=== PATIENT | female | born 1985 | race Caucasian/White ===

== ENCOUNTER 2016-07-05 17:00 | Emergency (ER) | payer MEDICAID ==
[2016-07-05] MEDS ORDERED: SODIUM CHLORIDE 0.9% 1,000 ML IV ONE (17:32)
[2016-07-05] MEDS ORDERED: KETOROLAC 60 MG/2 ML VIAL IVP STA (17:33)
[2016-07-05] MEDS ORDERED: PROCHLORPERAZINE 10 MG/2 ML VIAL IVP STA (17:33)
[2016-07-05] MEDS ORDERED: diphenhydrAMINE INJ 50 MG/ML VIAL IVP STA (17:33)
[2016-07-05] MEDS ORDERED: diphenhydrAMINE INJ 50 MG/ML VIAL ONE (17:34)
[2016-07-05] MEDS ORDERED: KETOROLAC 30 MG/ML VIAL ONE (17:35)
[2016-07-05] MEDS ORDERED: PROCHLORPERAZINE 10 MG/2 ML VIAL ONE (17:35)
== END 2016-07-05 18:49 | disposition home or self-care (01) ==
DX: G43.909 Migraine, unspecified, not intractable, without status migrainosus (principal); F17.200 Nicotine dependence, unspecified, uncomplicated

== ENCOUNTER 2016-07-11 16:36 | Emergency (ER) | payer MEDICAID ==
[2016-07-11] MEDS ORDERED: HYDROcod/ACETAM 5/325 MG TABLET PO STA (16:55)
[2016-07-11] MEDS ORDERED: CLINDAMYCIN 150 MG CAPSULE PO STA (16:55)
[2016-07-11] MEDS ORDERED: CLINDAMYCIN 150 MG CAPSULE PO ONE (17:00)
[2016-07-11] MEDS ORDERED: HYDROcod/ACETAM 5/325 MG TABLET ONE (17:00)
== END 2016-07-11 17:05 | disposition home or self-care (01) ==
DX: K02.9 Dental caries, unspecified (principal); F17.200 Nicotine dependence, unspecified, uncomplicated
CPT/HCPCS: 99283; A9270

== ENCOUNTER 2016-07-29 18:23 | Emergency (ER) | payer MEDICAID | END 2016-07-29 20:40 | disposition home or self-care (01) | DX: J06.9 Acute upper respiratory infection, unspecified (principal); B97.89 Other viral agents as the cause of diseases classified elsewhere; F17.200 Nicotine dependence, unspecified, uncomplicated; R03.0 Elevated blood-pressure reading, without diagnosis of hypertension ==

== ENCOUNTER 2016-10-24 15:43 | Outpatient (CLI) | payer MEDICAID ==
--- NOTE | 2016-10-25 16:20 | Mammography Report ---
DIGITAL SCREENING MAMMOGRAM: 10/24/2016 CLINICAL INDICATION: A 31-year-old with family history of breast cancer (mother first diagnosed at a ge 32), for baseline. TECHNIQUE: Routine CC and MLO projections were obtained of the breasts. FINDINGS: The breasts demonstrate heterogeneously dense fibroglandular parenchyma bilaterally. Ther e are two possible obscured nodules in the right breast, one in the upper outer posterior breast and the other in the right lower inner anterior breast. Further evaluation with spot compression views a nd possible right breast ultrasound is recommended. No mammographically suspicious findings are appr eciated in the left breast. IMPRESSION: INCOMPLETE EXAMINATION. RECOMMENDATION: Additional evaluation of the right breast as above. BI-RADS category 0, incomplete. STANDARD QUALIFYING STATEMENTS 1. This examination was reviewed with the aid of Computer-Aided Detection (CAD). 2. A negative or benign imaging report should not delay biopsy if clinically suspicious findings are present. Consider surgical consultation if warranted. More than 5% of cancers are not identified by i maging. 3. Dense breasts may obscure an underlying neoplasm. JOB #: [id number] EXT JOB #:[id number]
== END 2016-10-24 15:44 | disposition home or self-care (01) ==
LOC: DI 15:43
PROVIDERS: ATTEND Physician Assistant Medical
DX: Z12.31 Encounter for screening mammogram for malignant neoplasm of breast (principal); R92.8 Other abnormal and inconclusive findings on diagnostic imaging of breast; Z80.3 Family history of malignant neoplasm of breast
CPT/HCPCS: 77067

== ENCOUNTER 2016-11-14 12:16 | Outpatient (CLI) | payer MEDICAID ==
--- NOTE | 2016-11-14 13:31 | Ultrasound Report ---
RIGHT BREAST ULTRASOUND: 11/14/2016 CLINICAL INDICATION: Nodule on baseline. TECHNIQUE: Real-time scanning was performed with sales representative printing paper static images obtained. FINDINGS: Ultrasound of the right inner breast was performed. At the 3:30 position, 4 cm from the n ipple, there is a cluster of cysts, measuring an aggregate of 1.3 x 1.2 x 0.5 cm. A similar cluster of cysts, measuring 1.2 x 0.7 x 0.6 cm is noted at the 3 o'clock position. No sonographically suspic ious findings are identified. IMPRESSION: CLUSTER OF CYSTS, ACCOUNTING FOR THE MAMMOGRAPHIC ABNORMALITY. RECOMMENDATION: Routine annual screening unless otherwise clinically indicated. BIRADS CATEGORY 2 - BENIGN FINDINGS. JOB #: [id number] EXT JOB #:[id number]
--- NOTE | 2016-11-14 15:24 | Mammography Report ---
DIGITAL DIAGNOSTIC RIGHT MAMMOGRAM: 11/14/2016 CLINICAL INDICATION: Possible nodules on baseline. TECHNIQUE: Right true lateral and spot compression views. COMPARISON: 10/24/2016. FINDINGS: The right breast again demonstrates heterogeneously dense fibroglandular parenchyma. The n odule in the right inner anterior breast persists on additional compression, measuring approximately 8 mm in diameter. The density in the right outer posterior breast dissipates on additional compressio n. Please also refer to right breast ultrasound of the same day. IMPRESSION: BENIGN FINDINGS, WITH A CLUSTER OF CYSTS ACCOUNTING FOR THE PERSISTENT MAMMOGRAPHIC ABNO RMALITY IN THE RIGHT INNER BREAST. RECOMMENDATION: ROUTINE ANNUAL SCREENING UNLESS OTHERWISE CLINICALLY INDICATED. BIRADS CATEGORY 2-BENIGN FINDINGS. STANDARD QUALIFYING STATEMENTS 1. This examination was reviewed with the aid of Computer-Aided Detection (CAD). 2. A negative or benign imaging report should not delay biopsy if clinically suspicious findings are present. Consider surgical consultation if warranted. More than 5% of cancers are not identified by i maging. 3. Dense breasts may obscure an underlying neoplasm. JOB #: [id number] EXT JOB #:[id number]
== END 2016-11-14 12:17 | disposition home or self-care (01) ==
LOC: DI 12:16
PROVIDERS: ATTEND Physician Assistant Medical
DX: N60.01 Solitary cyst of right breast (principal)
CPT/HCPCS: 76642

== ENCOUNTER 2017-09-15 07:08 | Outpatient (CLI) | payer OTHER ==
[2017-09-15 07:23] LABS: BASOPHILS # (AUTO) 0.1 10^3/uL (0.0-0.1); BASOPHILS % (AUTO) 0.8 %; EOSINOPHILS # (AUTO) 0.2 10^3/uL (0.0-0.7); EOSINOPHILS % (AUTO) 1.6 %; HGB - HEMOGLOBIN 13.7 g/dL (12.0-16.0); LYMPHOCYTES # (AUTO) 2.5 10^3/uL (1.5-3.5); MEAN CORPUSCULAR HEMOGLOBIN 27.7 pg (27.0-31.0); MEAN CORPUSCULAR HGB CONC 33.4 g/dL (32.0-36.0); MEAN PLATELET VOLUME 7.3 fL (7.9-10.8); MONOCYTES # (AUTO) 0.5 10^3/uL (0.0-1.0); MONOCYTES % (AUTO) 5.3 %; NEUTROPHILS # (AUTO) 6.7 10^3/uL (1.5-6.6); NEUTROPHILS % (AUTO) 67.3 %; PLT - PLATELET COUNT 378 10^3/uL (130-450); RED BLOOD COUNT 4.95 10^6/uL (4.20-5.40); RED CELL DISTRIBUTION WIDTH 13.6 % (12.0-15.0); WHITE BLOOD COUNT 9.9 x10^3/uL (4.8-10.8)
[2017-09-15 07:41] LABS: ALBUMIN 4.1 g/dL (3.2-5.5); ALBUMIN/GLOBULIN RATIO 1.2 (1.0-2.2); ALKALINE PHOSPHATASE 46 IU/L (42-121); ALT ALANINE AMINOTRANSFERASE 13 IU/L (10-60); AST ASPARTATE AMINOTRANSFERASE 14 IU/L (10-42); BILIRUBIN,TOTAL 0.3 mg/dL (0.2-1.0); BUN - BLOOD UREA NITROGEN 11 mg/dL (6-20); CARBON DIOXIDE - CO2 24 mmol/L (21-32); CHLORIDE 103 mmol/L (101-111); CHOL/HDL RATIO 6.8 (<4.4); CHOLESTEROL 250 mg/dL; CREATININE 0.6 mg/dL (0.4-1.0); GFR - MDRD 114 (>89); GLUCOSE 102 mg/dL (70-100); HDL CHOLESTEROL 37 mg/dL; LDL CHOLESTEROL,CALCULATED 178 mg/dL; LDL/HDL RATIO 4.8 (<4.4); SODIUM 136 mmol/L (135-145); TOTAL PROTEIN 7.5 g/dL (6.7-8.2); VLDL CHOLESTEROL 35 mg/dL
== END 2017-09-15 07:09 | disposition home or self-care (01) ==
LOC: LAB 07:08
PROVIDERS: ATTEND Physician Assistant Medical
DX: Z00.00 Encounter for general adult medical examination without abnormal findings (principal)
CPT/HCPCS: 36415; 80053; 80061; 83721; 84443; 85025

== ENCOUNTER 2017-11-08 13:16 | Outpatient (CLI) | payer OTHER ==
--- NOTE | 2017-11-09 15:02 | Mammography Report ---
Procedure Date: 11/08/2017 Accession Number: [id number] / [id number] Procedure: JAMIE - Screening Mammo Dig Bilat CPT Code: FULL RESULT: EXAM: Screening Mammo Dig Bilat DATE: 11/08/2017 1:30 PM CLINICAL HISTORY: Mother with breast cancer diagnosed at age 32 TECHNIQUE: Bilateral CC and MLO views were obtained. COMPARISON: 10/24/2016 and 11/14/2016 FINDINGS: The breast tissue is heterogeneously dense. There is been no significant interval change. No suspicious masses, skin thickening, clustered microcalcifications, or regions of architectural distortion are identified. Stable right breast nodularity previously demonstrated to be cysts by ultrasound. IMPRESSION: Benign findings RECOMMENDATION: Routine annual screening unless otherwise clinically indicated. BIRADS CATEGORY 2: Benign findings STANDARD QUALIFYING STATEMENTS: 1. This examination was reviewed with the aid of Computer-Aided Detection (CAD). 2. A negative or benign imaging report should not delay biopsy if clinically suspicious findings are present. Consider surgical consultation if warrented. More than 5% of cancers are not identified by imaging. 3. Dense breasts may obscure an underlying neoplasm.
== END 2017-11-08 13:17 | disposition home or self-care (01) ==
LOC: DI 13:16
PROVIDERS: ATTEND Physician Assistant Medical
DX: Z12.31 Encounter for screening mammogram for malignant neoplasm of breast (principal); Z80.3 Family history of malignant neoplasm of breast
CPT/HCPCS: 77067

== ENCOUNTER 2017-12-22 16:51 | Outpatient (CLI) | payer OTHER ==
--- NOTE | 2017-12-22 18:21 | Ultrasound Report ---
Procedure Date: 12/22/2017 Accession Number: [id number] / [id number] Procedure: US - Pelvic w/Transvaginal CPT Code: FULL RESULT: EXAM: PELVIC ULTRASOUND EXAM DATE: 12/22/2017 05:41 PM. CLINICAL HISTORY: MENORRHAGIA. COMPARISON: 07/02/2010 pelvic ultrasound. TECHNIQUE: Realtime transabdominal pelvic scan performed to identify the uterus and adnexa and as an overview of other pelvic structures, followed by transvaginal scan to provide greater detail of the uterus and adnexa, with static image documentation. FINDINGS: Uterus: 7.7 x 3.4 x 4.3 cm, volume 58.9 cc. Anteverted position. Normal overall size and echotexture. Masses: None. Endometrium: 2.6 mm. Normal. Cervix: Unremarkable. Right Ovary: 2.2 x 1.5 x 2.4 cm, volume 4.1 cc. Normal echotexture and blood flow. Left Ovary: 2.2 x 1.6 x 2.1 cm, volume 3.9 cc. Normal echotexture and blood flow. Free Fluid: None. Other: None. IMPRESSION: Normal pelvic ultrasound. RADIA
== END 2017-12-22 16:52 | disposition home or self-care (01) ==
LOC: DI 16:51
PROVIDERS: ATTEND Physician Assistant Medical
DX: N92.0 Excessive and frequent menstruation with regular cycle (principal)
CPT/HCPCS: 76830; 76856

== ENCOUNTER 2018-01-25 09:41 | Outpatient (CLI) | payer OTHER ==
[2018-01-25 09:56] LABS: BASOPHILS # (AUTO) 0.1 10^3/uL (0.0-0.1); BASOPHILS % (AUTO) 0.9 %; EOSINOPHILS # (AUTO) 0.1 10^3/uL (0.0-0.7); EOSINOPHILS % (AUTO) 1.6 %; HGB - HEMOGLOBIN 13.9 g/dL (12.0-16.0); LYMPHOCYTES # (AUTO) 3.1 10^3/uL (1.5-3.5); LYMPHOCYTES % (AUTO) 34.8 %; MEAN CORPUSCULAR HEMOGLOBIN 28.2 pg (27.0-31.0); MEAN CORPUSCULAR HGB CONC 34.1 g/dL (32.0-36.0); MEAN CORPUSCULAR VOLUME 82.7 fL (81.0-99.0); MEAN PLATELET VOLUME 7.2 fL (7.9-10.8); MONOCYTES # (AUTO) 0.4 10^3/uL (0.0-1.0); MONOCYTES % (AUTO) 4.9 %; NEUTROPHILS # (AUTO) 5.2 10^3/uL (1.5-6.6); NEUTROPHILS % (AUTO) 57.8 %; PLT - PLATELET COUNT 425 10^3/uL (130-450); RED BLOOD COUNT 4.91 10^6/uL (4.20-5.40); RED CELL DISTRIBUTION WIDTH 13.3 % (12.0-15.0)
== END 2018-01-25 09:42 | disposition home or self-care (01) ==
LOC: LAB 09:41
PROVIDERS: ATTEND Registered Nurse
DX: N93.9 Abnormal uterine and vaginal bleeding, unspecified (principal)
CPT/HCPCS: 36415; 84443; 85025; 85730

== ENCOUNTER 2018-07-03 11:34 | Outpatient (CLI) | payer BC ==
--- NOTE | 2018-07-03 14:58 | Ultrasound Report ---
Reason: MENORRHAGIA Procedure Date: 07/03/2018 Accession Number: [id number] / [id number] Procedure: US - Pelvic w/Transvaginal CPT Code: FULL RESULT: EXAM: PELVIC ULTRASOUND EXAM DATE: 07/03/2018 12:18 PM. CLINICAL HISTORY: MENORRHAGIA. COMPARISON: PELVIC W/TRANSVAGINAL 12/22/2017 4:58 PM. TECHNIQUE: Realtime transabdominal pelvic scan performed to identify the uterus and adnexa and as an overview of other pelvic structures, followed by transvaginal scan to provide greater detail of the uterus and adnexa, with static image documentation. FINDINGS: Uterus: 6.8 x 3.0 x 4.3 cm, volume 45 cc. Anteverted position, retroflexed with transvaginal imaging. Grossly normal size and echotexture. Masses: None. Endometrium: 5 mm. Poorly visualized which appears to be due to patient body habitus. Cervix: Unremarkable. Right Ovary: 2.9 x 2.0 x 2.1 cm, volume 6.4 cc. Normal echotexture and blood flow. Left Ovary: Not visualized, obscured by bowel gas. Free Fluid: None. Other: None. IMPRESSION: 1. Poorly visualized endometrium appears to be normal thickness. 2. Left ovary is obscured. RADIA
== END 2018-07-03 11:35 | disposition home or self-care (01) ==
LOC: DI 11:34
PROVIDERS: ATTEND Registered Nurse
DX: N92.0 Excessive and frequent menstruation with regular cycle (principal)
CPT/HCPCS: 76830; 76856

== ENCOUNTER 2018-10-13 18:59 | Emergency (ER) | payer BC ==
--- NOTE | 2018-10-13 19:20 | ED Physician Documentation ---
History of Present Illness - Stated complaint Stated Complaint: ABD PX - Chief complaint Chief Complaint: Abd Pain - History obtained from History obtained from: Patient - Additonal information Additional information: Patient is a 33-year-old female presenting with intermittent, worsening right- sided abdominal flank pain over the past several days. Patient reports right flank and right abdomen pain that waxes and wanes and is worse after eating. Patient also has associated nausea and vomiting, but denies urinary changes or fever. Patient does have constipation as well.Patient does not have known gallbladder disease or previous kidney stones. No other improving or worsening factors noted. 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 STRATEGY: section HEENT: Tonsil/Adenoidectomy - Present Medications Home Medications: Ambulatory Orders Medication Instructions Recorded Confirmed Albuterol Sulfate [Proventil Hfa 1 - 2 puffs IH Q4H PRN #1 05/10/16 07/29/16 Inhaler] hfa.aer.ad Naratriptan HCl [Naratriptan] 1 mg PO PRN PRN 07/05/16 07/29/16 guaiFENesin/CODEINE [Robitussin AC] 5 - 10 ml PO Q6H PRN #120 ml 07/29/16 Hydrocodone/Acetaminophen 1 - 2 each PO Q6H PRN #14 tablet 10/13/18 [Hydrocodon-Acetaminophen 5-325] Ondansetron Odt [Zofran] 4 mg TL Q6H PRN #10 tablet 10/13/18 Tamsulosin [Flomax] 0.4 mg PO DAILY #14 capsule 10/13/18 - Allergies Allergies/Adverse Reactions: Allergies Allergy/AdvReac Type Severity Reaction Status Date / Time Penicillins Allergy Severe Respiratory Verified 07/29/16 18:30 - Social History Does the pt smoke?: Yes Smoking Status: Current every day smoker Does the pt drink ETOH?: No Does the pt have substance abuse?: No - Immunizations Immunizations are current?: Yes - POLST Patient has POLST: No PD ED PE NORMAL - Vitals Vital signs reviewed: Yes (Tachycardic-in pain) - General General: Alert and oriented X 3, Well developed/nourished. No: No acute distress (Painful appearing) - HEENT HEENT: Atraumatic, Moist mucous membranes - Cardiac Cardiac: No: RRR (Tachycardic) - Respiratory Respiratory: No respiratory distress, Clear bilaterally - Abdomen Abdomen: Normal bowel sounds, Soft, Non distended. No: Non tender (Exquisite right upper quadrant tenderness with positive Nelson sign. No McBurney's point tenderness. Midline and left abdomen unremarkable.No guarding or rebound.) - Back Back: No: No CVA TTP (Right CVA tenderness present) - Derm Derm: Normal color, Warm and dry, No rash - Extremities Extremities: No deformity, No tenderness to palpate - Neuro Neuro: Alert and oriented X 3, No motor deficit, No sensory deficit - Psych Psych: Normal mood, Normal affect Results - Vitals Vitals: Vital Signs - 24 hr 10/13/18 10/13/18 10/13/18 19:04 20:05 21:58 Temperature 37.2 C Heart Rate 136 H 90 91 Respiratory 20 15 14 Rate Blood Pressure 135/107 H 144/97 H 142/73 H O2 Saturation 100 98 97 Oxygen O2 Source Room air - Labs Labs: Laboratory Tests 10/13/18 10/13/18 10/13/18 19:10 19:10 19:10 WBC 12.9 H RBC 4.93 Hgb 13.5 Hct 40.9 MCV 83.0 MCH 27.3 MCHC 32.9 RDW 13.8 Plt Count 438 MPV 7.3 L Neut # (Auto) 7.1 H Lymph # (Auto) 4.8 H Dickens # (Auto) 0.7 Eos # (Auto) 0.2 Baso # (Auto) 0.1 Absolute Nucleated RBC 0.01 Nucleated RBC % 0.1 Sodium 140 Potassium 3.5 Chloride 105 Carbon Dioxide 21 Anion Gap 14.0 H BUN 11 Creatinine 0.6 Estimated GFR (MDRD) 114 Glucose 153 H Calcium 9.4 Total Bilirubin 0.4 AST 23 ALT 25 Alkaline Phosphatase 55 Total Protein 7.4 Albumin 4.5 Globulin 2.9 Albumin/Globulin Ratio 1.6 Lipase 29 Serum HCG, Qual NEGATIVE Urine Color Urine Clarity Urine pH Ur Specific [place] Urine Protein Urine Glucose (UA) Urine Ketones Urine Occult Blood Urine Nitrite Urine Bilirubin Urine Urobilinogen Ur Leukocyte Esterase Ur Microscopic Review Urine Culture Comments Urine HCG, Qual 10/13/18 10/13/18 21:53 21:53 WBC RBC Hgb Hct MCV MCH MCHC RDW Plt Count MPV Neut # (Auto) Lymph # (Auto) Dickens # (Auto) Eos # (Auto) Baso # (Auto) Absolute Nucleated RBC Nucleated RBC % Sodium Potassium Chloride Carbon Dioxide Anion Gap BUN Creatinine Estimated GFR (MDRD) Glucose Calcium Total Bilirubin AST ALT Alkaline Phosphatase Total Protein Albumin Globulin Albumin/Globulin Ratio Lipase Serum HCG, Qual Urine Color YELLOW Urine Clarity CLEAR Urine pH 5.5 Ur Specific [place] >=1.030 H >=1.030 H Urine Protein NEGATIVE Urine Glucose (UA) NEGATIVE Urine Ketones NEGATIVE Urine Occult Blood TRACE-INTA Urine Nitrite NEGATIVE Urine Bilirubin NEGATIVE Urine Urobilinogen 0.2 (NORMAL) Ur Leukocyte Esterase NEGATIVE Ur Microscopic Review NOT INDICATED Urine Culture Comments NOT INDICATED Urine HCG, Qual NEGATIVE PD MEDICAL DECISION MAKING - ED course Complexity details: reviewed results, re-evaluated patient, considered differential, d/w patient, d/w family ED course: Most concerning for nephrolithiasis and cholelithiasis given location and asso ciated symptoms, as well as physical exam findings. Patient denies symptoms that would raise high suspicion for pyelonephritis or UTI, but considered. Plan to obtain urinalysis sample. Patient also denies symptoms and risk factors for pancreatitis, appendicitis, bowel obstruction, diverticulitis, AAA, pelvic pathology including ovarian torsion or cyst, but considered. Screening lab work will be obtained. Patient started on IV fluid, as well as pain and nausea medication. Patient received several doses of pain medication during ED stay to help relieve discomfort. Did wait until imaging was complete to give Toradol as had concern for possible need for gallbladder removal in case of acute cholecystitis. However, imaging returned indicative of right-sided nephrolithiasis that is otherwise relatively uncomplicated. Screening lab work also returned unremarkable except for mild leukocytosis.Urinalysis also obtained which not reflect infection and do not feel the patient requires antibiotics at this time. Discussed results and recommendations with patient including use of Zofran, Nebo, Flomax at home, other supportive cares, strict return precautions and need for primary care physician and possibly urology follow-up. Patient and significant other voiced understanding and are comfortable with discharge plan. Departure - Departure Clinical Impression: Nephrolithiasis Condition: Good Instructions: ED Stone Renal W Colic Follow-Up: Real Gastelum MD [Primary Care Provider] - Within 3 Days Prescriptions: Hydrocodone/Acetaminophen [Hydrocodon-Acetaminophen 5-325] 1 - 2 each PO Q6H PRN #14 tablet PRN Reason: pain Ondansetron Odt [Zofran] 4 mg TL Q6H PRN #10 tablet PRN Reason: Nausea / Vomiting Tamsulosin [Flomax] 0.4 mg PO DAILY #14 capsule Comments: Recommend hydration with Powerade/Gatorade, healthy diet, rest, and follow-up with primary care physician in the next 2 to 3 days. If symptoms persist, you may need referral to urology. Please take Zofran and Nebo for nausea and pain relief, respectively. Please take Flomax to help pass kidney stone. If taking Nebo regularly, recommend use of stool softener or laxative to avoid constipation. Do not combine with alcohol, driving, or Tylenol. If not taking Nebo, may use Tylenol. Return to ED sooner if experience worsening symptoms such as including fever, persistent vomiting, back pain, abdominal pain, urinary changes, or other concerns.
[2018-10-13] MEDS ORDERED: SODIUM CHLORIDE 0.9% 1,000 ML IV ONE (19:27)
[2018-10-13] MEDS ORDERED: ONDANSETRON 4 MG/2 ML VIAL IVP STA (19:27)
[2018-10-13] MEDS ORDERED: HYDROmorphone 1 MG/ML CARPUJECT IVP STA ×2 (19:27→21:12)
[2018-10-13 19:30] LABS: BASOPHILS # (AUTO) 0.1 10^3/uL (0.0-0.1); BASOPHILS % (AUTO) 1.1 %; EOSINOPHILS # (AUTO) 0.2 10^3/uL (0.0-0.7); EOSINOPHILS % (AUTO) 1.5 %; HGB - HEMOGLOBIN 13.5 g/dL (12.0-16.0); LYMPHOCYTES # (AUTO) 4.8 10^3/uL (1.5-3.5); LYMPHOCYTES % (AUTO) 37.3 %; MEAN CORPUSCULAR HEMOGLOBIN 27.3 pg (27.0-31.0); MEAN CORPUSCULAR HGB CONC 32.9 g/dL (32.0-36.0); MEAN PLATELET VOLUME 7.3 fL (7.9-10.8); MONOCYTES # (AUTO) 0.7 10^3/uL (0.0-1.0); MONOCYTES % (AUTO) 5.3 %; NEUTROPHILS # (AUTO) 7.1 10^3/uL (1.5-6.6); NEUTROPHILS % (AUTO) 54.8 %; PLT - PLATELET COUNT 438 10^3/uL (130-450); RED BLOOD COUNT 4.93 10^6/uL (4.20-5.40); RED CELL DISTRIBUTION WIDTH 13.8 % (12.0-15.0); WHITE BLOOD COUNT 12.9 x10^3/uL (4.8-10.8)
[2018-10-13 19:45] LABS: ALBUMIN 4.5 g/dL (3.2-5.5); ALBUMIN/GLOBULIN RATIO 1.6 (1.0-2.2); BILIRUBIN,TOTAL 0.4 mg/dL (0.2-1.0); CALCIUM 9.4 mg/dL (8.5-10.3); CREATININE 0.6 mg/dL (0.4-1.0); TOTAL PROTEIN 7.4 g/dL (6.7-8.2)
[2018-10-13] MEDS ORDERED: fentaNYL 100 MCG/2 ML VIAL IVP STA (20:26)
[2018-10-13 20:33] LABS: HCG,QUALITATIVE BLOOD NEGATIVE
--- NOTE | 2018-10-13 21:24 | Ultrasound Report ---
Reason: gallbladder Procedure Date: 10/13/2018 Accession Number: [id number] / [id number] Procedure: US - Abdomen Limited CPT Code: FULL RESULT: EXAM: ABDOMEN ULTRASOUND LIMITED, RUQ EXAM DATE: 10/13/2018 08:08 PM. CLINICAL HISTORY: Gallbladder. Right upper quadrant pain. COMPARISON: ABDOMEN/PELVIS W/O 10/13/2018 8:37 PM. TECHNIQUE: Real-time scanning was performed with static images obtained. FINDINGS: Liver: In the right hepatic lobe, there is a heterogeneous mass with hypoechoic rim and vascularity within the mass. This measures 1.8 x 2.1 x 1.9 cm concerning for a solid liver malignant mass. Further workup is recommended. An MR or CT liver mass protocol could be obtained to further evaluate. Length 15.3 cm. Main portal vein flow: Hepatopetal. Gallbladder: The gallbladder is tender. The gallbladder appears within normal limits. Gallbladder wall thickness measures 2.7 mm, within normal limits. The patient is not NPO. No pericholecystic fluid. No gallstones are seen. Biliary System: Common duct measures 3 mm. No intrahepatic or extrahepatic ductal dilatation. Other: The right kidney measures 11.5 cm in length. There is mild right hydronephrosis. Technically difficult exam, patient unable to suspend breast. Visual portions of the pancreas appear unremarkable. Limited visualization. IMPRESSION: 1. The gallbladder appears within normal limits. The patient is tender over the gallbladder. 2. Solid heterogeneous vascular mass seen in the right hepatic lobe measuring 2.1 cm. Further evaluation is recommended. Liver malignancy is possible. Recommend an MR or CT liver mass protocol with contrast to further evaluate. 3. Mild right hydronephrosis. RADIA
--- NOTE | 2018-10-13 21:28 | CT Report ---
Reason: concern for right kidney stones Procedure Date: 10/13/2018 Accession Number: [id number] / [id number] Procedure: CT - Abdomen/Pelvis WO CPT Code: FULL RESULT: EXAM: CT ABDOMEN AND PELVIS (CT KUB) EXAM DATE: 10/13/2018 08:37 PM. CLINICAL HISTORY: Right flank pain. Concern for right kidney stones. COMPARISONS: None. TECHNIQUE: Routine axial helical CT imaging was performed through the abdomen and pelvis without IV contrast. Reconstructions: Coronal and sagittal. In accordance with CT protocol optimization, one or more of the following dose reduction techniques were utilized for this exam: automated exposure control, adjustment of mA and/or KV based on patient size, or use of iterative reconstructive technique. FINDINGS: Lung bases: No acute findings. Liver: Laterally in the right hepatic lobe, there is a ill-defined hypodense mass measuring 2.4 x 2.2 cm. This is concerning for a solid liver mass and further workup is recommended. Gallbladder: Unremarkable. Bile Ducts: Unremarkable. Pancreas: Unremarkable. Spleen: Unremarkable. Adrenals: Unremarkable. Kidneys: Mild right hydronephrosis and hydroureter being caused by a ureterovesicular junction calculus measuring 4 x 3 mm. The left kidney appears unremarkable. Bowel: Normal appendix. No acute bowel findings are seen. No evidence for bowel obstruction. No free fluid or free air. Pelvis: The there is a right vesicular junction calculus measuring 4 x 3. Otherwise the bladder is unremarka. The uterus and ovaries appear within normal limits. Vasculature: No acute findings. Bones: Large posterior disk osteophyte complex at L1-L2 resulting in mild central stenosis. IMPRESSION: 1. Mild right hydronephrosis and hydroureter being caused by a ureterovesicular junction calculus measuring 4 x 3 mm. 2. Laterally in the right hepatic lobe, there is a ill-defined hypodense mass measuring 2.4 x 2.2 cm. This is concerning for a solid liver mass and further workup is recommended, preferably with an MR abdomen without and with contrast liver mass protocol. 3. Normal appendix. 4. Large posterior disk osteophyte complex at L1-L2 resulting in mild central stenosis. RADIA
[2018-10-13] MEDS ORDERED: KETOROLAC 30 MG/ML VIAL IVP STA (21:30)
[2018-10-13 22:00] LABS: BILIRUBIN,URINE NEGATIVE (NEGATIVE); GLUCOSE, URINE (UA) NEGATIVE (NEGATIVE); KETONES,URINE (UA) NEGATIVE (NEGATIVE); LEUKOCYTE ESTERASE, URINE NEGATIVE (NEGATIVE); NITRITE,URINE NEGATIVE (NEGATIVE); OCCULT BLOOD,URINE TRACE-INTA (NEGATIVE); PH,URINE 5.5 PH (5.0-7.5); PROTEIN,URINE NEGATIVE (NEGATIVE); UROBILINOGEN,URINE 0.2 (NORMAL) E.U./dL (NORMAL)
[2018-10-13 22:05] LABS: CLARITY,URINE CLEAR (CLEAR); HCG UR QUAL NEGATIVE
[2018-10-13 22:31] VITALS: BP 141/97
== END 2018-10-13 22:43 | disposition home or self-care (01) ==
LOC: ED 18:59
DX: N13.2 Hydronephrosis with renal and ureteral calculous obstruction (principal); R16.0 Hepatomegaly, not elsewhere classified; I10 Essential (primary) hypertension; F17.200 Nicotine dependence, unspecified, uncomplicated
CPT/HCPCS: 36415; 74176; 76705; 80053; 81003; 81025; 83690; 84703; 85025; 96361; 96374; 96375; 96376; 99283; 99284; J1170; 81001; 87086

== ENCOUNTER 2018-10-17 15:13 | Outpatient (CLI) | payer BC ==
[2018-10-17] MEDS ORDERED: GADOBUTROL 10 MMOL/10 ML VIAL ONE (15:32)
[2018-10-17] MEDS ORDERED: GADOBUTROL 10 MMOL/10 ML VIAL IVP ONE (16:37)
--- NOTE | 2018-10-17 17:12 | MRI Report ---
Reason: HEPATIC MASS Procedure Date: 10/17/2018 Accession Number: [id number] / [id number] Procedure: MRI - Abdomen W/WO CPT Code: FULL RESULT: EXAM: MR ABDOMEN WITH AND WITHOUT CONTRAST (MR LIVER) EXAM DATE: 10/17/2018 04:20 PM. CLINICAL HISTORY: HEPATIC MASS. COMPARISON: ABDOMEN/PELVIS W/O 10/13/2018 8:37 PM ABDOMEN LIMITED 10/13/2018 7:40 PM. TECHNIQUE: Multiplanar breath-hold T1, T2, and DWI sequences obtained through the abdomen on an MR scanner. Images obtained before and after administration of 8 mL Gadavist intravenous contrast. Multiphase postcontrast images obtained of the liver and abdomen. FINDINGS: Lung Bases: Unremarkable. Liver: The contrast-enhanced sequences are motion degraded. There is a T1 hypointense up to approximately 1.6 cm lesion in segment 5/8 on series 901 image 67. This lesion shows positive postcontrast enhancement without delayed washout and shows intermediate to high signal intensity on T2 sequences and shows high signal on diffusion sequences. Gallbladder: The gallbladder is partially distended and appears normal with no wall thickening or stone. Bile ducts: No intrahepatic or extrahepatic duct dilatation Pancreas: The pancreas appears normal with no mass or ductal dilatation. Spleen: The spleen appears normal. Kidneys: The kidneys appear normal with no mass or hydronephrosis. Adrenals: The adrenals appear normal. Bowel: The visualized segments of the small bowel and colon appear normal with no inflammation or obstruction. Retroperitoneum: The retroperitoneal structures appear normal with no mass or lymphadenopathy. Other: None IMPRESSION: 1. Limited exam secondary to motion degradation, particularly on the contrast-enhanced sequences. 2. Enhancing right hepatic lobe liver lesion. In a patient this age, adenoma or FNH would be most likely. However, this lesion would be smaller than a typically observed adenoma or FNH. In the absence of a known cancer history or other suspicious findings, metastatic disease is considered less likely. Enhancement pattern not typical of HCC or hemangioma. RADIA
== END 2018-10-17 15:14 | disposition home or self-care (01) ==
LOC: DI 15:13
PROVIDERS: ATTEND Registered Nurse
DX: K76.9 Liver disease, unspecified (principal)
CPT/HCPCS: 74183; A9585

== ENCOUNTER 2018-11-30 15:22 | Outpatient (CLI) | payer BC ==
--- NOTE | 2018-12-05 09:48 | Mammography Report ---
Reason: SCREENING MAMMO Procedure Date: 11/30/2018 Accession Number: [id number] / [id number] Procedure: JAMIE - Screening Mammo w/Aayush CPT Code: FULL RESULT: EXAM: Screening Mammo w/Aayush DATE: 11/30/2018 3:45 PM CLINICAL HISTORY: Screening encounter. Family history of breast cancer in the mother at the age of 32. TECHNIQUE: (B) - Bilateral CC and MLO views were obtained. COMPARISON: 11/08/2017 through 10/24/2016. PARENCHYMAL PATTERN: (D) - The breast(s) demonstrate(s) heterogeneously dense fibroglandular parenchyma. FINDINGS: There are no suspicious masses, calcifications, or areas of distortion. IMPRESSION: Negative examination. BI-RADS category 1. RECOMMENDATION: (ANNUAL) - Recommend routine annual screening mammography. BI-RADS CATEGORY: (1) - Negative. STANDARD QUALIFYING STATEMENTS: 1. This examination was not reviewed with the aid of Computer-Aided Detection (CAD). 2. A negative or benign imaging report should not preclude biopsy if clinically suspicious findings are present. 3. Dense breasts may obscure an underlying neoplasm. 4. This examination was reviewed with the aid of 3D breast imaging (tomosynthesis).
== END 2018-11-30 15:23 | disposition home or self-care (01) ==
LOC: DI 15:22
DX: Z12.31 Encounter for screening mammogram for malignant neoplasm of breast (principal); Z80.3 Family history of malignant neoplasm of breast
CPT/HCPCS: 77063; 77067

== ENCOUNTER 2019-02-19 15:07 | Outpatient (CLI) | payer BC ==
[2019-02-19 15:37] LABS: BASOPHILS % (AUTO) 0.4 %; EOSINOPHILS # (AUTO) 0.2 10^3/uL (0.0-0.7); EOSINOPHILS % (AUTO) 1.8 %; HGB - HEMOGLOBIN 13.7 g/dL (12.0-16.0); LYMPHOCYTES # (AUTO) 2.7 10^3/uL (1.5-3.5); LYMPHOCYTES % (AUTO) 26.4 %; MEAN CORPUSCULAR HEMOGLOBIN 28.3 pg (27.0-31.0); MEAN CORPUSCULAR HGB CONC 33.2 g/dL (32.0-36.0); MEAN CORPUSCULAR VOLUME 85.3 fL (81.0-99.0); MONOCYTES # (AUTO) 0.7 10^3/uL (0.0-1.0); NEUTROPHILS # (AUTO) 6.6 10^3/uL (1.5-6.6); PLT - PLATELET COUNT 344 10^3/uL (130-450); RED BLOOD COUNT 4.84 10^6/uL (4.20-5.40); RED CELL DISTRIBUTION WIDTH 12.6 % (12.0-15.0); WHITE BLOOD COUNT 10.4 x10^3/uL (4.8-10.8)
== END 2019-02-19 15:08 | disposition home or self-care (01) ==
LOC: LAB 15:07
PROVIDERS: ATTEND Obstetrics & Gynecology
DX: Z01.812 Encounter for preprocedural laboratory examination (principal); N92.1 Excessive and frequent menstruation with irregular cycle
CPT/HCPCS: 36415; 81001; 81003; 81025; 85025; 86850; 86900; 86901

== ENCOUNTER 2019-02-20 07:51 | Day surgery (SDC) | payer BC ==
[~2019-02-20 07:51] MED LIST: CEFAZOLIN SODIUM IN 0.9 % NACL 2 GM/100 ML BAG IV ONE
[2019-02-20] MEDS ORDERED: DEXAMETHASONE 4 MG/ML VIAL IVP ONE (07:52)
[2019-02-20] MEDS ORDERED: PROPOFOL 200 MG/20 ML VIAL IVP ONE (07:52)
[2019-02-20] MEDS ORDERED: ROCURONIUM 50 MG/5 ML VIAL IVP ONE (07:52)
[2019-02-20] MEDS ORDERED: MIDAZOLAM 2 MG/2 ML VIAL IVP ONE (07:52)
[2019-02-20] MEDS ORDERED: LIDOCAINE-MPF 2% 5 ML VIAL IM ONE (07:52)
[2019-02-20] MEDS ORDERED: fentaNYL 100 MCG/2 ML VIAL IVP ONE (07:52)
[2019-02-20] MEDS ORDERED: PHENAZOPYRIDINE 100 MG TABLET PO SCH (08:00)
[2019-02-20] MEDS ORDERED: LACTATED RINGERS 1,000 ML IV ONE ×2 (08:08→11:15)
[2019-02-20 08:11] LABS: BILIRUBIN,URINE NEGATIVE (NEGATIVE); GLUCOSE, URINE (UA) NEGATIVE (NEGATIVE); KETONES,URINE (UA) NEGATIVE (NEGATIVE); LEUKOCYTE ESTERASE, URINE NEGATIVE (NEGATIVE); NITRITE,URINE NEGATIVE (NEGATIVE); OCCULT BLOOD,URINE NEGATIVE (NEGATIVE); PH,URINE 6.5 PH (5.0-7.5); PROTEIN,URINE NEGATIVE (NEGATIVE); UROBILINOGEN,URINE 0.2 (NORMAL) E.U./dL (NORMAL)
[2019-02-20 08:13] LABS: CLARITY,URINE CLEAR (CLEAR); HCG UR QUAL NEGATIVE
--- NOTE | 2019-02-20 08:35 | ANESTHESIA ---
Pre-Anesthesia VS, & Labs - Diagnosis Menometrorrhagia - Procedure Total Laparoscopic Hysterectomy w/bilat salpingectomy: poss LAVH: poss SAAD Vital Signs: Temp Pulse Resp BP Pulse Ox 37.6 C H 87 16 119/87 H 97 02/20/19 08:13 02/20/19 08:13 02/20/19 08:13 02/20/19 08:13 02/20/19 08:13 Height 5 ft 3 in Weight (kg) 86.2 kg Body Mass Index 34.2 - NPO >8 hours - Is Patient ?: No (- HCG 02/20) - Lab Results Lab results reviewed: Yes Home Medications and Allergies Home Medications: Ambulatory Orders Bupropion HCl [Bupropion Xl] 150 mg PO DAILY 02/12/19 Lisinopril 20 mg PO DAILY 02/12/19 Rizatriptan Benzoate [Maxalt Group Counselor] 10 mg PO ONCE PRN 02/12/19 Active Medications Phenazopyridine HCl (Pyridium) 100 mg PO ONCE RA Stop: 02/20/19 17:00 Bupropion HCl [Bupropion Xl] 150 mg PO DAILY 02/12/19 Lisinopril 20 mg PO DAILY 02/12/19 Rizatriptan Benzoate [Maxalt Group Counselor] 10 mg PO ONCE PRN 02/12/19 Allergies/Adverse Reactions: Allergies Allergy/AdvReac Type Severity Reaction Status Date / Time Penicillins Allergy Severe Anaphylaxis Verified 02/12/19 09:14 triamterene Allergy N/V/D Verified 02/12/19 09:14 Anes History & Medical History - Anesthetic History Anesthesia Complications: reports: No previous complications, Post-Operative Nausea/Vomiting (mild after T&A as an adult) Family history of Anesthesia Complications: Denies Family history of Malignant Hyperthermia: Denies - Medical History Cardiovascular: reports: Hypertension Pulmonary: reports: None Gastrointestinal: reports: None Urinary: reports: Kidney stones Musculoskeletal: reports: None Endocrine/Autoimmune: reports: None Skin: reports: None Smoking Status: Current every day smoker - Surgical History Eyes Ears Nose Throat (EENT): Tonsil/Adenoidectomy Gynecologic: section, 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, Other Orthopedic: Other Exam General: Alert, Oriented x3, Cooperative Dental: WNL Mouth Openin Fingerbreadth Neck Mobility: Normal Mallampati classification: II Thyromental Distance: 4-6 cm Respiratory: Lungs clear, Normal breath sounds, No respiratory distress Cardiovascular: Regular rate (pt states occ. irreg beat) Neurological: Normal speech Mental/Cognitive Status: Alert/Oriented X3, Normal for patient Cognitive Status: Within normal limits Plan Anesthesia Type: General, Transverse Abdominis Plane (TAP) Block (possible) Consent for Procedure(s) Verified and Reviewed: Yes Code Status: Attempt Resuscitation ASA classification: 2-Mild systemic disease Is this case an emergency?: No
[2019-02-20] MEDS ORDERED: GABAPENTIN 400 MG CAPSULE ONE (09:27)
[2019-02-20] MEDS ORDERED: CELECOXIB 100 MG CAPSULE PO ONE (09:28)
[2019-02-20] MEDS ORDERED: ACETAMINOPHEN 500 MG TABLET PO ONE (09:28)
[2019-02-20] MEDS ORDERED: SCOPOLAMINE PATCH TOP ONE (09:50)
[2019-02-20] MEDS ORDERED: BUPIVACAINE 0.5%-EPI 1:200000 PF 30 ML VIAL ONE ×2 (09:53→10:54)
[2019-02-20] MEDS ORDERED: METHYLENE BLUE 0.5% 50 MG/10 ML AMPULE ONE (09:53)
[2019-02-20] MEDS ORDERED: BUPIVACAINE 0.25%-EPI 1:200000 PF 30 ML VIAL SUBQ ONE (11:04)
[2019-02-20] MEDS ORDERED: ONDANSETRON 4 MG/2 ML VIAL IVP PRN (13:05)
[2019-02-20] MEDS: LACTATED RINGERS 1,000 ML IV SCH (14:13)
[2019-02-20] MEDS: HYDROcod/ACETAM 5/325 MG TABLET PO PRN ×2 (14:20→22:32)
--- NOTE | 2019-02-20 16:32 | OPERATIVE REPORT ---
DATE OF SERVICE: 02/20/2019 Physician: Gulshan Fay DO PREOPERATIVE DIAGNOSIS: Menometrorrhagia. POSTOPERATIVE DIAGNOSIS: Menometrorrhagia with abdominal adhesions. PROCEDURE PERFORMED: Laparoscopically assisted vaginal hysterectomy with lysis of adhesions and diagnostic cystoscopy. SURGEON: Gulshan Fay DO STRIKE WARFARE/MISSILE SYSTEMS OFFICER: Dr. Deja Eden, who assisted in draping, retraction and surgical expertise. She also assisted in suturing and running the camera. She also helped with dissection. ANESTHESIA: General by Carlos Rae CRNA. WOUND CLASSIFICATION: Two. ESTIMATED BLOOD LOSS: 75 mL. SPONGE COUNT, NEEDLE COUNT: Correct. CLINICAL HISTORY: Please see H and P. SURGICAL FINDINGS: There were filmy adhesions anteriorly in the pelvis, pushing the omentum up onto the anterior peritoneum. The uterus sounded to a depth of 8 cm. The right ovary was unremarkable. The left ovary had a small ovarian cyst. There was evidence in the pelvis of her previous tubal ligation. There were dense and filmy adhesions in the pelvis, with regards to the bladder anteriorly. The liver margins, gallbladder and diaphragm were all unremarkable. PROCEDURE: Patient was taken to the operative suite, placed on the surgical table in supine position. Under general anesthesia, she was placed in Seymour stirrups, prepped and draped in the usual fashion. A timeout then took place. Once the timeout was satisfactorily completed, a weighted speculum was placed in the vaginal vault and the cervix visualized. A single-tooth tenaculum was placed onto the anterior lip of the cervix. The uterus was then sounded to a depth of 8 cm and the cervix was dilated to 6 mm. At this time, the VESIcare uterine manipulator was placed into the endocervical canal, into the myometrial cavity and the balloon expanded. This then had a medium cup, which easily went around the cervix, and then the vaginal occluder was put into place. The weighted speculum was removed from the vaginal vault. The surgeon's gloves were now changed, and attention was now placed to the abdomen. Prior to making any abdominal incisions, all areas were anesthetized with 0.5% Marcaine with epinephrine. Because of her history of adhesions in the past, it was felt that a subcostal port should be placed. Therefore, a subcostal port was placed on the left side, 2 fingerbreadths below the costal margin in the midline. A 5 mm incision was made at that site and a Veress needle was entered into the abdominal cavity. The abdominal cavity was then insufflated with approximately 3 liters of CO2. The Veress needle was withdrawn and the laparoscope was placed in an Optiview 5 mm port and was advanced through the incision into the abdomen under direct laparoscopic visualization. The trocar was removed and the scope advanced through the port. The CO2 was applied and good rates of flow and good intra-abdominal pressures noted. The above said findings were noted. Laparoscopic photographic documentation took place. A second port was now placed in the infraumbilical fold port. A third port was placed lateral to the left rectus musculature, 2 cm above the anterior iliac spine. A fourth port was placed in the midline suprapubic area, and a fifth port was placed on the right, 2 fingerbreadths superior to the anterior iliac spine. These were all placed under direct laparoscopic visualization. The LigaSure sealing and dissection device was then used to dissect the adhesions. Once this was done, the uterus was elevated and the remnant of the left fallopian tube was grasped at its fimbriated end. This was densely adhesed to the ovary and along the infundibulopelvic ligament. This was then carefully dissected free using the LigaSure device. This was removed and sent to pathology for evaluation. The round ligament on the left was now divided and hemostasis followed. The suspensory ligament of the ovary on the left was now divided and hemostasis followed. The anterior leaf of the broad ligament was then entered to the level of the vesicouterine plica in the midline. This was dissected using the LigaSure device. The posterior leaf of the broad ligament was now dissected to the level of the uterine vessels on the left hand side. These were now identified and divided. Hemostasis followed. The incision at the vesicouterine plica was now extended laterally to the right. The bladder was adhesed anteriorly and so this was carefully dissected free from the anterior portion of the cervix. The vaginal arteries alongside the cervix were now dissected and divided on the left hand side and hemostasis followed. It is of note that the ureters were well out of the plane of dissection at all times. Attention was now placed to the right side of the pelvis. The right fallopian tube remnant was now grasped and dissected free from the ovary. This was removed and sent to pathology for evaluation. There was still a small tubal remnant at the cornu, which was now freed from the mesosalpinx. The round ligament on the right hand side was now divided and hemostasis followed. The suspensory ligament of the ovary on the right hand side was now divided and hemostasis followed. The anterior leaf of the of the broad ligament on the right hand side was now divided to the level of the previous incision. The posterior leaf of the broad ligament was now dissected to the level of the uterine vessels on the right hand side. Hemostasis followed. The uterine vessels were now easily seen and divided. Further dissection of the bladder off of the cervix took place at this time. Once the bladder had been completely freed, the uterus was now blanching very well. The arteries on the cervix on the right hand side were also divided. Hemostasis followed. The CO2 was now allowed to escape from the abdomen. All ports were removed. The incision sites were repaired with 4-0 Monocryl suture in a subcuticular fashion and hemostasis followed. Steri-Strips were placed and sterile dressings were placed. Attention was now placed to the vagina. A weighted speculum was placed in the vaginal vault and the cervix visualized. A single-tooth tenaculum was placed on the anterior lip of the cervix. Another tenaculum was placed on the posterior lip of the cervix. The tissue surrounding the cervix was now injected with 0.5% Marcaine with epinephrine. A circumferential incision was now made around the cervix. The bladder was now dissected free from the anterior cervix using sharp dissection. A Sole retractor was now placed through this to elevate the bladder out of the plane of dissection. Attention was now placed to the posterior cul-de-sac. This was entered with sharp dissection, and the blade of the weighted speculum was placed through this into the abdomen. The left uterosacral ligament was now clamped, divided, and sutured with 0 Vicryl suture and hemostasis followed. The right uterosacral ligament was now clamped, divided and sutured with 0 Vicryl suture and hemostasis followed. At this point in time, it was noted that the left side of the uterus was now free. There was still a small piece of tissue holding it on the right hand side. This was now clamped, divided and sutured with 0 Vicryl suture and hemostasis followed. The uterus was now easily removed and sent to pathology for evaluation. All pedicles were visualized. No signs of bleeding were noted and hemostasis followed. The peritoneum was then reapproximated using 2-0 Vicryl suture in a pursestring fashion. Hemostasis followed. The vaginal cuff was now reapproximated using 0 Vicryl suture in an interrupted fashion, with attention placed to attach the uterosacral ligaments to the vaginal cuff. The vaginal cuff was now closed and hemostasis followed. The vagina was then cleared of all blood, clots and debris. The weighted speculum was removed from the vaginal vault. The Narayan catheter was now removed from the bladder. The 70-degree cystoscope was now advanced through the urethra into the bladder. The bladder was instilled with approximately 300 mL of normal saline. No defects were noted. Both ureteral jets were visualized and found to be extruding urine bilaterally. This was colored by the Pyridium that she had taken preoperatively. The cystoscope was now removed from the bladder and the Narayan catheter replaced. Patient was then taken to recovery room in stable condition. TD: 02/20/2019 13:31 TORO
[2019-02-20] MEDS: IBUPROFEN 600 MG TABLET PO SCH ×2 (17:25→23:56)
[2019-02-21] MEDS: LACTATED RINGERS 1,000 ML IV SCH (00:15)
[2019-02-21] MEDS: IBUPROFEN 600 MG TABLET PO SCH (05:55)
[2019-02-21 07:37] VITALS: BP 119/74
--- NOTE | 2019-02-21 08:19 | PROVIDER PROGRESS NOTE ---
Subjective - Other Other Information/Narrative: The patient is completely without complaint this morning. She stated that she had just mild cramping at most. She denies any vaginal bleeding.Ambulating well and tolerating diet well. She is passing flatus. Objective - Patient Data Vital Signs: Vital Signs x48h Temp Pulse Resp BP Pulse Ox 02/21/19 07:36 36.7 C 75 16 119/74 95 Weight: Weight 02/19/19 02/20/19 02/21/19 23:59 23:59 23:59 Weight (kg) 86.2 kg Intake & Output: Intake and Output Totals x24h 02/19/19 02/20/19 02/21/19 23:59 23:59 23:59 Intake Total 1960 1500 Output Total 2575 800 Balance -615 700 - Current Medications Current Medications: Current Medications Generic Name Dose Route Start Last Admin Trade Name Freq PRN Reason Stop Dose Admin Hydrocodone Bitart/Acetaminophen 1 - 2 tab 02/20/19 13:05 02/20/19 22:32 [place] 5/325 PO 1 tab Q4HR PRN Administration PAIN Lactated Ringer's 1,000 mls @ 100 mls/hr 02/20/19 14:00 02/21/19 00:15 Lr IV 100 mls/hr .Q10H RA Administration Ibuprofen 600 mg 02/20/19 18:00 02/21/19 05:55 Motrin PO 600 mg Q6HR RA Administration - Physical Exam Comments/Other: Lungs: Lungs are clear to auscultation bilaterally without wheezes, rales or rhonchi Heart: Heart has a regular rate and rhythm without murmur, S3-S4 gallop rhythms, clicks, rubs, thrills or heaves Abdomen: The abdomen is soft, pliable and nontender.She has normoactive bowel sounds. Incisions: Incisions are clean and dry without any signs of infection. They are all well approximated. Steri-Strips are in place. Impression/Plan - Problem List Problem List: Postop day 0-stable Plan: The patient will be allowed to be discharged home with both written and verbal instructions. She was given a prescription for hydrocodone/acetaminophen 5/325 1 p.o. every 4 hours as needed pain #20 with no refills.We will see her in the office in 4 weeks.
[2019-02-21] MEDS ORDERED: buPROPion XL 150 MG TABLET PO SCH (09:00)
[2019-02-21] MEDS ORDERED: LISINOPRIL 20 MG TABLET PO SCH (09:00)
== END 2019-02-21 09:15 | disposition home or self-care (01) ==
LOC: SDS 07:51 → MS2 13:36 → SDS 02-21 09:15
PROVIDERS: ATTEND Obstetrics & Gynecology
PROC: 0UT7FZZ Resection of Bilateral Fallopian Tubes, Via Natural or Artificial Opening With Percutaneous Endoscopic Assistance (ICD-10-PCS; 2019-02-20)
PROC: 0UT9FZZ Resection of Uterus, Via Natural or Artificial Opening With Percutaneous Endoscopic Assistance (ICD-10-PCS; principal; 2019-02-20 09:00)
DX: N92.1 Excessive and frequent menstruation with irregular cycle (principal); D25.0 Submucous leiomyoma of uterus; R16.0 Hepatomegaly, not elsewhere classified; N99.4 Postprocedural pelvic peritoneal adhesions; I10 Essential (primary) hypertension; F17.210 Nicotine dependence, cigarettes, uncomplicated; L65.0 Telogen effluvium; K21.9 Gastro-esophageal reflux disease without esophagitis; F41.9 Anxiety disorder, unspecified; R87.619 Unspecified abnormal cytological findings in specimens from cervix uteri; Z01.812 Encounter for preprocedural laboratory examination
CPT/HCPCS: 58552; 81003; 81025; A9270; J0690; J3490; J7120; 81001; 87086

== ENCOUNTER 2019-07-16 17:08 | Outpatient (CLI) | payer BC ==
--- NOTE | 2019-07-17 13:49 | CT Report ---
Reason: FLANK PAIN Procedure Date: 07/16/2019 Accession Number: [id number] / [id number] Procedure: CT - Abdomen/Pelvis WO CPT Code: Final Report FULL RESULT: EXAM: CT ABDOMEN AND PELVIS (CT KUB) EXAM DATE: 07/16/2019 06:04 PM. CLINICAL HISTORY: FLANK PAIN. COMPARISONS: ABDOMEN/PELVIS W/O 10/13/2018 8:37 PM ABDOMEN W/WO 10/17/2018 3:50 PM. TECHNIQUE: Routine helical CT imaging was performed through the abdomen and pelvis without intravenous contrast. Lack of intravenous contrast can at times limit scan sensitivity, particularly for the detection of intraparenchymal and vascular pathology. Reconstructions: Coronal and sagittal. In accordance with CT protocol optimization, one or more of the following dose reduction techniques were utilized for this exam: automated exposure control, adjustment of mA and/or KV based on patient size, or use of iterative reconstructive technique. FINDINGS: ABDOMEN: Lung Bases: Incompletely included lower lungs are grossly clear. Heart size is within normal limits. No basilar effusions. Liver: Stable 1.6 cm low attenuating solid lesion in segment 5/8. Gallbladder/Bile Ducts: Gallbladder is unremarkable. Visualized biliary tree is normal caliber. Spleen: Unremarkable. Pancreas: Unremarkable. Adrenal Glands: Unremarkable. Kidneys: No calculi or hydronephrosis. Peritoneum/Mesentery/Bowel: No free fluid, free air, or collection. No intestinal obstruction or inflammation. The appendix is within normal limits. Lymph nodes: No mesenteric, periportal, or retroperitoneal lymphadenopathy. PELVIS: The bladder is unremarkable for the degree of distention. Status post hysterectomy. 3.4 cm cyst in the left ovary, highly likely benign. Right ovary not seen. No pelvic lymphadenopathy. Retroperitoneum: Abdominal aorta is nonaneurysmal. Bones: No suspicious osseous lesions. IMPRESSION: No acute unenhanced abnormalities. No calculi or hydronephrosis. Stable 1.6 cm segment 5/8 solid lesion, previously characterized on MRI as a probable flash filling hemangioma, with adenoma in the differential. RADIA
== END 2019-07-16 17:09 | disposition home or self-care (01) ==
LOC: DI 17:08
PROVIDERS: ATTEND Surgery
DX: R10.11 Right upper quadrant pain (principal); K76.9 Liver disease, unspecified; N83.202 Unspecified ovarian cyst, left side
CPT/HCPCS: 74176

== ENCOUNTER 2019-07-19 09:59 | Outpatient (CLI) | payer BC ==
[2019-07-19] MEDS ORDERED: SINCALIDE 5 MCG VIAL ONE (11:01)
[2019-07-19] MEDS ORDERED: SINCALIDE 1.6 MCG in SODIUM CHLORIDE 0.9% 50 ML IV ONE (12:37)
--- NOTE | 2019-07-21 12:23 | Nuclear Medicine Report ---
Reason: RT UPPER QUADRANT PAIN, HEPATOMEGALY Procedure Date: 07/19/2019 Accession Number: [id number] / [id number] Procedure: NM - Hepatobiliary HIDA w/ Rx CPT Code: Final Report FULL RESULT: EXAM: HEPATOBILIARY SCAN WITH CCK/KINEVAC ADMINISTRATION EXAM DATE: 07/19/2019 12:41 PM. CLINICAL HISTORY: RT UPPER QUADRANT PAIN, HEPATOMEGALY. COMPARISON: ABDOMEN/PELVIS W/O 07/16/2019 6:01 PM. TECHNIQUE: Following the intravenous administration of 5.1 mCi of Tc99m Mebrofenin, a hepatobiliary scan was done centered on the liver and gallbladder in multiple sequential images and projections. Following the intravenous administration of 1.6 mcg of CCK/ Kinevac over the course of approximately 60 minutes, dynamic imaging was done and the gallbladder ejection fraction was calculated. FINDINGS: Normal extraction of tracer from the blood pool indicating normal hepatocellular function. The liver size and shape is grossly within normal limits. There is activity visualized within the bile ducts, gallbladder, and small bowel during the first hour. With CCK administration, the gallbladder demonstrates an effective contraction. The gallbladder ejection fraction is calculated to be 70%, well above the lower limit of normal of 38% for a 60-minute injection. The patient did report symptoms after CCK administration. A small amount of enterogastric bile reflux is observed. IMPRESSION: 1. Patent cystic duct. 2. Patent common bile duct. 3. Negative for acute or chronic cholecystitis. 4. Positive for a small amount of enterogastric bile reflux. 5. Gallbladder ejection fraction of 70%. RADIA
== END 2019-07-19 10:00 | disposition home or self-care (01) ==
LOC: DI 09:59
PROVIDERS: ATTEND Surgery
DX: R10.11 Right upper quadrant pain (principal); R16.0 Hepatomegaly, not elsewhere classified; K31.89 Other diseases of stomach and duodenum
CPT/HCPCS: 78227; J7040

== ENCOUNTER 2019-08-01 05:56 | Day surgery (SDC) | payer BC ==
[2019-08-01] MEDS ORDERED: PROPOFOL 200 MG/20 ML VIAL IVP ONE (05:57)
[2019-08-01] MEDS ORDERED: DEXAMETHASONE 4 MG/ML VIAL IVP ONE (05:57)
[2019-08-01] MEDS ORDERED: ROCURONIUM 50 MG/5 ML VIAL IVP ONE (05:57)
[2019-08-01] MEDS ORDERED: fentaNYL 100 MCG/2 ML VIAL IVP ONE (05:57)
[2019-08-01] MEDS ORDERED: MIDAZOLAM 2 MG/2 ML VIAL IVP ONE (05:57)
[2019-08-01 06:48] LABS: HCG UR QUAL NEGATIVE
[2019-08-01] MEDS ORDERED: LACTATED RINGERS 1,000 ML IV ONE ×2 (06:54→09:10)
[2019-08-01] MEDS ORDERED: BUPIVACAINE 0.25% PF 30 ML VIAL ONE (06:57)
[2019-08-01] MEDS ORDERED: LIDOCAINE 1%-EPI 1:100000 20 ML MDV ONE (06:58)
[2019-08-01] MEDS ORDERED: LIDOCAINE 1% 50 ML MDV ONE (06:58)
[2019-08-01] MEDS ORDERED: GABAPENTIN 400 MG CAPSULE ONE (07:11)
[2019-08-01] MEDS ORDERED: ACETAMINOPHEN 1,000 MG/100 ML 100 ML IV ONE (07:12)
[2019-08-01] MEDS ORDERED: CELECOXIB 100 MG CAPSULE PO ONE (07:12)
--- NOTE | 2019-08-01 07:28 | ANESTHESIA ---
Pre-Anesthesia VS, & Labs - Diagnosis cholecystitis - Procedure laparoscopic cholesyctectomy Vital Signs: Temp Pulse Resp BP Pulse Ox 37.0 C 87 16 135/102 H 100 08/01/19 06:28 08/01/19 06:28 08/01/19 06:28 08/01/19 06:28 08/01/19 06:28 Height 5 ft 3 in Weight (kg) 80.6 kg Body Mass Index 33.6 - NPO >8 hours - Is Patient ?: No Home Medications and Allergies Home Medications: Ambulatory Orders No Known Home Medications 08/01/19 Active Medications Cefazolin Sodium 3 gm/ Sodium (Chloride) 100 mls @ 200 mls/hr IV ONCE RA Stop: 08/01/19 17:00 No Known Home Medications 08/01/19 Allergies/Adverse Reactions: Allergies Allergy/AdvReac Type Severity Reaction Status Date / Time Penicillins Allergy Severe Anaphylaxis Verified 08/01/19 06:44 triamterene Allergy N/V/D Verified 08/01/19 06:44 Anes History & Medical History - Anesthetic History Anesthesia Complications: reports: No previous complications - Medical History Cardiovascular: reports: Hypertension Pulmonary: reports: None Gastrointestinal: reports: None Urinary: reports: Kidney stones Musculoskeletal: reports: None Endocrine/Autoimmune: reports: None Skin: reports: None Smoking Status: Current every day smoker - Surgical History Eyes Ears Nose Throat (EENT): Tonsil/Adenoidectomy Gynecologic: section, 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, Hysterectomy, Other Orthopedic: Other Exam General: Alert Dental: WNL Mallampati classification: II Thyromental Distance: greater than 6 cm Respiratory: Lungs clear Cardiovascular: Regular rate Plan Anesthesia Type: General Consent for Procedure(s) Verified and Reviewed: Yes Code Status: Attempt Resuscitation ASA classification: 2-Mild systemic disease Is this case an emergency?: No
[2019-08-01] MEDS ORDERED: BUPIVACAINE 0.5% PF 10 ML VIAL ONE (07:34)
[2019-08-01] MEDS ORDERED: ceFAZolin 3 GM in SODIUM CHLORIDE 0.9% 100ML 100 ML IV SCH (08:00)
[2019-08-01] MEDS ORDERED: LIDOCAINE 1%-EPI 1:100000 20 ML MDV SUBQ ONE (08:18)
[2019-08-01] MEDS ORDERED: BUPIVACAINE 0.5% PF 10 ML VIAL SUBQ ONE (08:18)
[2019-08-01] MEDS ORDERED: SUGAMMADEX 200 MG/2 ML VIAL IVP ONE (08:38)
--- NOTE | 2019-08-01 08:56 | OPERATIVE REPORT ---
Operative Report - General Procedure Date: 08/01/19 Planned Procedure: Laparoscopic Cholecystectomy Pre-Op Diagnosis: Chronic choleystitis Procedure Performed: Laparoscopic cholecystectomy Post Op Diagnosis: Chronic cholecystitis - Procedure Note Primary Surgeon: Dino Anesthesia Provider: JESSICA Rae Anesthesia Technique: General ET tube, Local Pathology: Gall bladder in formalin to pathology Estimated Blood Loss (mL): 5 Indications: Chronic symptomatic cholecystitis Findings: Distended and thin wall gall bladder Complications: None apparent - Other Other Information/Narrative: After obtaining informed consent the patient is brought to the operating room and placed in the supine position on the operating table. Following successful induction of general endotracheal anesthesia, appropriate padding of all bony prominences, and placement of appropriate monitors, the abdomen was prepped and draped in the standard surgical fashion. A timeout was held per scope protocol. All elements of the surgical safety checklist were followed before, during, and after the procedure. Following infiltration with local anesthetic to create a field block, an incision was created inferior to the umbilicus and carried down through the skin and subcutaneous tissue to reveal the fascia below. 2-0 Vicryl retention sutures were placed on either side of the midline and the abdomen was entered under direct vision using a 15 blade scalpel. A 10 mm blunt Fair balloon trocar was placed in the abdominal cavity and it was insufflated to 15 mmHg pressure. The patient was placed in reverse Trendelenburg position with the left side rotated toward the floor. A second trocar, 5 mm, was placed in the midepigastrium under direct vision and after anesthetization of the surrounding skin.A third trocar, also 5 mm was placed in the right upper quadrant for retraction of the gallbladder and a fourth 1 just medial to that as a working port as well. The gallbladder was examined. It was adherent to the surrounding structures including the omentum and the right colon. These structures were carefully dissected free from the surface of the gallbladder using a mixture of blunt and sharp dissection. The fundus of the gallbladder was then grasped and elevated up over the liver revealing the cholecysto hepatoduodenal ligament. The neck of the gallbladder was retracted laterally and the cystic duct and artery were carefully identified. The common duct was visualized but not skeletonized. The cystic duct was clipped 3 times proximally and once distally and divided, the cystic artery was clipped twice proximally, once distally, and divided. The gallbladder was then liberated from its bed in the liver using cautery. It was placed in an Endo Catch bag and removed via the umbilical port with a camera in the epigastric position. The camera was replaced in the umbilical position and the abdomen was checked for hemostasis. It was irrigated with warm saline solution and aspirated free of all fluid and particulate matter. The trochars were then removed under direct vision and the abdomen desufflated. The umbilical incision was closed with interrupted Vicryl suture and Monocryl was placed in all of the skin incisions. All sponge, needle, and instrument counts were correct at the conclusion of the case. The patient was allowed awaken from anesthesia without difficulty and taken to the postanesthesia care unit in good condition.
[2019-08-01] MEDS: HYDROmorphone 0.5 MG/0.5 ML SYRINGE ONE ×3 (09:06→09:18)
[2019-08-01] MEDS ORDERED: ONDANSETRON 4 MG/2 ML VIAL ONE (09:09)
[2019-08-01] MEDS ORDERED: HYDROmorphone 0.5 MG/0.5 ML SYRINGE ONE (09:20)
[2019-08-01] MEDS ORDERED: ONDANSETRON 4 MG/2 ML VIAL IVP PRN (10:11)
[2019-08-01] MEDS ORDERED: ACETAMINOPHEN 325 MG TABLET PO PRN (10:11)
[2019-08-01] MEDS ORDERED: IBUPROFEN 600 MG TABLET PO PRN (10:11)
[2019-08-01] MEDS ORDERED: oxyCODONE 5 MG TABLET PO PRN (10:11)
[2019-08-01] MEDS ORDERED: SCOPOLAMINE PATCH TOP ONE (10:11)
[2019-08-01 11:02] VITALS: BP 117/87
== END 2019-08-01 05:57 | disposition home or self-care (01) ==
LOC: SDS 05:56
PROVIDERS: ATTEND Surgery
PROC: 0FT44ZZ Resection of Gallbladder, Percutaneous Endoscopic Approach (ICD-10-PCS; principal; 2019-08-01 07:30)
DX: K81.1 Chronic cholecystitis (principal); I10 Essential (primary) hypertension; F41.9 Anxiety disorder, unspecified; F17.210 Nicotine dependence, cigarettes, uncomplicated
CPT/HCPCS: 47562; 81025; A9270; J0131; J1170; J3490; J7120

== ENCOUNTER 2019-08-27 20:28 | Emergency (ER) | payer BC ==
[2019-08-27 20:58] LABS: BILIRUBIN,URINE NEGATIVE (NEGATIVE); GLUCOSE, URINE (UA) NEGATIVE (NEGATIVE); KETONES,URINE (UA) NEGATIVE (NEGATIVE); LEUKOCYTE ESTERASE, URINE NEGATIVE (NEGATIVE); NITRITE,URINE NEGATIVE (NEGATIVE); OCCULT BLOOD,URINE LARGE (NEGATIVE); PROTEIN,URINE NEGATIVE (NEGATIVE); UROBILINOGEN,URINE 0.2 (NORMAL) E.U./dL (NORMAL)
[2019-08-27] MEDS ORDERED: ONDANSETRON 4 MG/2 ML VIAL IVP STA ×2 (21:00→22:19)
[2019-08-27] MEDS ORDERED: HYDROmorphone 2 MG/ML VIAL IVP STA ×2 (21:00→22:19)
[2019-08-27] MEDS ORDERED: SODIUM CHLORIDE 0.9% 1,000 ML IV ONE (21:00)
--- NOTE | 2019-08-27 21:03 | ED Physician Documentation ---
History of Present Illness - Stated complaint Stated Complaint: RT SIDE ABD PX - Chief complaint Chief Complaint: Abd Pain - History obtained from History obtained from: Patient (The patient is a 33-year-old female presents with chief complaint of right-sided flank pain with dysuria.She reports she has a history of a previous kidney stone reports that this feels similar she has had a cholecystectomy approximately 1 month ago.She reports nausea and vomiting as well.) Review of Systems Constitutional: reports: Reviewed and negative Eyes: reports: Reviewed and negative Ears: reports: Reviewed and negative Nose: reports: Reviewed and negative Throat: reports: Reviewed and negative Cardiac: reports: Reviewed and negative Respiratory: reports: Reviewed and negative GI: reports: Other (Right-sided flank pain) : reports: Reviewed and negative Skin: reports: Reviewed and negative Musculoskeletal: reports: Reviewed and negative Neurologic: reports: Reviewed and negative Psychiatric: reports: Reviewed and negative Endocrine: reports: Reviewed and negative Immunocompromised: reports: Reviewed and negative PD PAST MEDICAL HISTORY - Past Medical History Cardiovascular: Hypertension Respiratory: None Endocrine/Autoimmune: None GI: None : Kidney stones HEENT: Chronic vision loss Psych: None Musculoskeletal: None Derm: None - Past Surgical History Past Surgical History: Yes General: Cholecystectomy 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, 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, Hysterectomy, Other HEENT: Tonsil/Adenoidectomy - Present Medications Home Medications: Ambulatory Orders Medication Instructions Recorded Confirmed Ondansetron Odt [Zofran] 4 mg TL Q6H PRN #10 tablet 08/01/19 oxyCODONE [Roxicodone] 5 mg PO Q6H PRN #20 tablet 08/01/19 Ondansetron Odt [Zofran Odt] 4 mg TL Q6H PRN #10 tablet 08/27/19 - Allergies Allergies/Adverse Reactions: Allergies Allergy/AdvReac Type Severity Reaction Status Date / Time Penicillins Allergy Severe Anaphylaxis Verified 08/27/19 21:28 triamterene Allergy N/V/D Verified 08/27/19 21:28 - Social History Does the pt smoke?: Yes Smoking Status: Current every day smoker Does the pt drink ETOH?: No Does the pt have substance abuse?: No - Immunizations Immunizations are current?: Yes - POLST Patient has POLST: No PD ED PE NORMAL - Vitals Vital signs reviewed: Yes - General General: Alert and oriented X 3, No acute distress, Well developed/nourished - HEENT HEENT: Atraumatic, PERRL, Moist mucous membranes, Pharynx benign - Neck Neck: Supple, no meningeal sign, No JVD - Cardiac Cardiac: RRR, No murmur, Strong equal pulses - Respiratory Respiratory: No respiratory distress, Clear bilaterally - Abdomen Abdomen: Normal bowel sounds, Soft, Non tender, Non distended, No organomegaly, Other (Positive for right-sided CVA tenderness) - Back Back: No spinal TTP, Other (Positive for right-sided CVA tenderness) - Derm Derm: Normal color, Warm and dry, No rash - Extremities Extremities: No deformity, No tenderness to palpate, Normal ROM s pain, No edema, No calf tenderness / cord - Neuro Neuro: Alert and oriented X 3, it 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 2-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, No motor deficit, No sensory deficit, Normal speech - Psych Psych: Normal mood, Normal affect Results - Vitals Vitals: Vital Signs - 24 hr 08/27/19 08/27/19 08/27/19 20:32 20:54 22:04 Temperature 36.3 C L Heart Rate 86 81 88 Respiratory 26 H 20 16 Rate Blood Pressure 146/88 H 151/99 H 119/80 O2 Saturation 99 100 100 Oxygen O2 Source Room air - Labs Labs: Laboratory Tests 08/27/19 08/27/19 08/27/19 20:45 20:45 20:45 WBC 15.8 H RBC 4.75 Hgb 13.2 Hct 40.4 MCV 85.1 MCH 27.8 MCHC 32.7 RDW 13.3 Plt Count 432 MPV 9.4 Neut # (Auto) Not Reportable Lymph # (Auto) Not Reportable [place] # (Auto) Not Reportable Eos # (Auto) Not Reportable Baso # (Auto) Not Reportable Absolute Nucleated RBC Not Reportable Total Counted 100 Band Neuts % (Manual) 0 Abnorm Lymph % (Manual) 0 Nucleated RBC % Not Reportable Neutrophils # (Manual) 8.4 H Lymphocytes # (Manual) 6.6 H Monocytes # (Manual) 0.8 Eosinophils # (Manual) 0.0 Basophils # (Manual) 0.0 Differential Comment MANUAL DIFFERENTIAL Manual Slide Review Indicated WBC Morphology NORMAL APPEARANCE Platelet Estimate NORMAL (130-450,000) Platelet Morphology NORMAL APPEARANCE RBC Morph Micro Appear NORMAL APPEARANCE Sodium 136 Potassium 3.2 L Chloride 106 Carbon Dioxide 20 L Anion Gap 10.0 BUN 15 Creatinine 0.5 Estimated GFR (MDRD) 140 Glucose 160 H Calcium 9.1 Total Bilirubin 0.5 AST 16 ALT 25 Alkaline Phosphatase 75 Total Protein 7.1 Albumin 4.3 Globulin 2.8 Albumin/Globulin Ratio 1.5 Lipase 26 Urine Color YELLOW Urine Clarity HAZY Urine pH 5.0 Ur Specific [place] >=1.030 H Urine Protein NEGATIVE Urine Glucose (UA) NEGATIVE Urine Ketones NEGATIVE Urine Occult Blood LARGE H Urine Nitrite NEGATIVE Urine Bilirubin NEGATIVE Urine Urobilinogen 0.2 (NORMAL) Ur Leukocyte Esterase NEGATIVE Urine RBC TNTC H Urine WBC 0-3 Ur Squamous Epith Cells MOD Squamous H Urine Crystals 0-2 Calcium Oxalate Urine Bacteria Few Ur Microscopic Review INDICATED Urine Culture Comments NOT INDICATED Urine HCG, Qual 08/27/19 20:45 WBC RBC Hgb Hct MCV MCH MCHC RDW Plt Count MPV Neut # (Auto) Lymph # (Auto) [place] # (Auto) Eos # (Auto) Baso # (Auto) Absolute Nucleated RBC Total Counted Band Neuts % (Manual) Abnorm Lymph % (Manual) Nucleated RBC % Neutrophils # (Manual) Lymphocytes # (Manual) Monocytes # (Manual) Eosinophils # (Manual) Basophils # (Manual) Differential Comment Manual Slide Review WBC Morphology Platelet Estimate Platelet Morphology RBC Morph Micro Appear Sodium Potassium Chloride Carbon Dioxide Anion Gap BUN Creatinine Estimated GFR (MDRD) Glucose Calcium Total Bilirubin AST ALT Alkaline Phosphatase Total Protein Albumin Globulin Albumin/Globulin Ratio Lipase Urine Color Urine Clarity Urine pH Ur Specific [place] >1.030 Urine Protein Urine Glucose (UA) Urine Ketones Urine Occult Blood Urine Nitrite Urine Bilirubin Urine Urobilinogen Ur Leukocyte Esterase Urine RBC Urine WBC Ur Squamous Epith Cells Urine Crystals Urine Bacteria Ur Microscopic Review Urine Culture Comments Urine HCG, Qual NEGATIVE PD MEDICAL DECISION MAKING - ED course Complexity details: reviewed old records, reviewed results, re-evaluated patient (22:20 patient symptoms improved, still with moderate pain. ), considered differential (History and exam are consistent with nephrolithiasis.), d/w patient, other (afebrile, well appearing, pain controlled, good follow up, able to void. will dc with close follow up. ) Departure - Departure Disposition: 01 Home, Self Care Clinical Impression: Nephrolithiasis Condition: Stable Instructions: Kidney Stones Follow-Up: your, doctor [Other] - Tomorrow Prescriptions: Ondansetron Odt [Zofran Odt] 4 mg TL Q6H PRN #10 tablet PRN Reason: Nausea / Vomiting Comments: take pain medications as needed, follow up with urology as needed, hydrate well, take flomax as well for the next seven days, take zofran as needed for nausea and vomiting.
[2019-08-27 21:04] LABS: CLARITY,URINE HAZY (CLEAR)
[2019-08-27 21:05] LABS: ALBUMIN 4.3 g/dL (3.2-5.5); ALBUMIN/GLOBULIN RATIO 1.5 (1.0-2.2); BILIRUBIN,TOTAL 0.5 mg/dL (0.2-1.0); CALCIUM 9.1 mg/dL (8.5-10.3); CREATININE 0.5 mg/dL (0.4-1.0); TOTAL PROTEIN 7.1 g/dL (6.7-8.2)
[2019-08-27 21:06] LABS: BASOPHILS % (AUTO) 0.4 %; HGB - HEMOGLOBIN 13.2 g/dL (12.0-16.0); LYMPHOCYTES % (AUTO) 39.9 %; MEAN CORPUSCULAR HEMOGLOBIN 27.8 pg (27.0-31.0); MEAN CORPUSCULAR HGB CONC 32.7 g/dL (32.0-36.0); MEAN CORPUSCULAR VOLUME 85.1 fL (81.0-99.0); MEAN PLATELET VOLUME 9.4 fL (7.9-10.8); NEUTROPHILS % (AUTO) 50.2 %; PLT - PLATELET COUNT 432 10^3/uL (130-450); RED BLOOD COUNT 4.75 10^6/uL (4.20-5.40); RED CELL DISTRIBUTION WIDTH 13.3 % (12.0-15.0); WHITE BLOOD COUNT 15.8 x10^3/uL (4.8-10.8)
[2019-08-27 21:07] LABS: ABNORMAL LYMPHS % (MANUAL) 0 %; BAND NEUTROPHILS % (MANUAL) 0 %
[2019-08-27 21:08] LABS: BACTERIA,URINE Few /HPF (None Seen); CRYSTALS,URINE 0-2 Calcium Oxalate /LPF; RBC,URINE TNTC /HPF (0-5); SQUAMOUS EPITHELIAL CELL,UR MOD Squamous (<= Few)
[2019-08-27 21:22] LABS: DIFFERENTIAL COMMENT MANUAL DIFFERENTIAL; LYMPHOCYTES # (MANUAL) 6.6 10^3/uL (1.5-3.5); LYMPHOCYTES % (MANUAL) 42 %; MONOCYTES # (MANUAL) 0.8 10^3/uL (0.0-1.0); PLATELET ESTIMATE, MANUAL NORMAL (130-450,000) (NORMAL); PLATELET MORPHOLOGY NORMAL APPEARANCE (NORMAL); RBC MORPHOLOGY (MULTIPLE) NORMAL APPEARANCE (NORMAL)
[2019-08-27 21:30] LABS: HCG UR QUAL NEGATIVE
[2019-08-27 22:04] VITALS: BP 119/80
--- NOTE | 2019-08-27 22:11 | CT Report ---
Reason: right flank pain Procedure Date: 08/27/2019 Accession Number: [id number] / [id number] Procedure: CT - Abdomen/Pelvis WO CPT Code: Final Report FULL RESULT: EXAM: CT ABDOMEN AND PELVIS EXAM DATE: 08/27/2019 09:49 PM. CLINICAL HISTORY: Right flank pain. COMPARISONS: CT ABDOMEN/PELVIS W/O 07/16/2019 6:01 PM. TECHNIQUE: Routine helical CT imaging was performed through the abdomen and pelvis. IV contrast: No. Enteric contrast: No. Reconstructions: Coronal and sagittal. In accordance with CT protocol optimization, one or more of the following dose reduction techniques were utilized for this exam: automated exposure control, adjustment of mA and/or KV based on patient size, or use of iterative reconstructive technique. FINDINGS: Lung Bases: No acute findings. Small granuloma in right lower lobe. Liver: Unremarkable on noncontrast CT. Gallbladder/Bile Ducts: Cholecystectomy. No significant biliary dilation. Spleen: Unremarkable. Pancreas: Unremarkable. Adrenal Glands: Unremarkable. Kidneys: Mild right hydroureteronephrosis secondary to 3 mm calculus at right ureterovesical junction. Attenuation of right collecting system contents is more dense than simple fluid (31 HU). No additional urinary calculi. No perinephric fat stranding. Mild right periureteral stranding. Peritoneal Cavity/Bowel: Unremarkable. No free fluid, free air or adenopathy. No masses or acute inflammatory process. The appendix is well visualized and normal. Pelvic Organs: Uterus surgically absent. Ovaries not seen. As above, there is small calculus at right ureterovesical junction. Attenuation of bladder contents noted to be slightly greater than simple fluid. Bladder otherwise unremarkable. Vasculature: No aneurysms or other significant abnormality. Bones: No acute osseous abnormality. Other: Postsurgical changes in anterior abdominal wall periumbilical region. IMPRESSION: 1. Mild right hydroureteronephrosis secondary to 3 mm right ureterovesical junction calculus. Attenuation of right collecting system and bladder contents are slightly more dense than simple fluid which may indicate hemorrhagic or proteinaceous component. Correlate with urinalysis. 2. Cholecystectomy and hysterectomy. RADIA
[2019-08-27] MEDS ORDERED: KETOROLAC 30 MG/ML VIAL IVP STA (22:19)
== END 2019-08-27 22:31 | disposition home or self-care (01) ==
LOC: ED 20:28
DX: N13.2 Hydronephrosis with renal and ureteral calculous obstruction (principal); I10 Essential (primary) hypertension; F17.200 Nicotine dependence, unspecified, uncomplicated; Z87.442 Personal history of urinary calculi
CPT/HCPCS: 36415; 74176; 80053; 81001; 81025; 83690; 85025; 96361; 96374; 96376; 99283; 99284; J1170; 81003; 87086

== ENCOUNTER 2019-08-30 07:00 | Outpatient (CLI) | payer BC ==
[2019-09-03 07:54] LABS: NIDUS Not Observed; SPECIMEN SOURCE URINE; STONE WEIGHT 0.005 g
== END 2019-08-30 23:59 | disposition home or self-care (01) ==
LOC: LAB.R 07:00
PROVIDERS: ATTEND Physician Assistant Medical
DX: N20.0 Calculus of kidney (principal)
CPT/HCPCS: 82365

== ENCOUNTER 2019-11-20 11:56 | Outpatient (CLI) | payer BC ==
--- NOTE | 2019-11-20 14:33 | Ultrasound Report ---
PROCEDURE: Retroperitoneal INDICATIONS: KIDNEY STONES TECHNIQUE: Real-time scanning was performed of the retroperitoneal organs, with image documentation. COMPARISON: 08/27/2019. FINDINGS: Kidneys: Kidneys are normal in size. Right kidney measures 10.7 cm long; left kidney measures 11.0 cm long. Right renal cortical thickness is 1.5 cm; left renal cortical thickness is 1.3 cm. No yaneth d masses, hydronephrosis, or nephrolithiasis. Pancreas: Visualized portions of the pancreas are sonographically normal. Aorta: Visualized aorta is normal in caliber at 3 cm or less. Iliac arteries: Proximal common iliac arteries are normal in caliber at 2.5 cm or less. IVC: Intrahepatic inferior vena cava is patent. Miscellaneous: No free abdominal fluid. IMPRESSION: Normal renal ultrasound. No shadowing calculus or hydronephrosis. Reviewed by: Ronald Solis MD on 11/20/2019 2:32 PM PDT Approved by: Ronald Solis MD on 11/20/2019 2:32 PM PDT Station ID: [id number]
== END 2019-11-20 11:57 | disposition home or self-care (01) ==
LOC: DI 11:56
PROVIDERS: ATTEND Family Medicine
DX: N13.4 Hydroureter (principal); N20.0 Calculus of kidney
CPT/HCPCS: 76770

== ENCOUNTER 2019-12-02 12:25 | Outpatient (CLI) | payer BC ==
--- NOTE | 2019-12-03 15:12 | Mammography Report ---
BILATERAL DIGITAL SCREENING MAMMOGRAM 3D/2D: 12/02/2019 CLINICAL: Routine screening. Comparison is made to exams dated: 11/30/2018 mammogram, 11/08/2017 mammogram, 11/14/2016 mammogram, an d 10/24/2016 mammogram - [facility]. The tissue of both breasts is extremely dense, which lowers the sensitivity of mammography. No significant masses, calcifications, or other findings are seen in either breast. There has been no significant interval change. IMPRESSION: NEGATIVE There is no mammographic evidence of malignancy. A 1 year screening mammogram is recommended. This exam was interpreted at Station ID: [id number]. NOTE: For mammograms, a report in lay terms will be sent to the patient. Approximately 15% of breast malignancies will not be visualized mammographically. In the management of a palpable breast mass, a negative mammogram must not discourage biopsy of a clinically suspicious lesion. Electronically Signed By: Ronald Solis M.D., jr/paulina:12/02/2019 13:09:20 ACR BI-RADS Category 1: Negative 3341F PARENCHYMAL PATTERN: (VD) - The breast(s) demonstrate(s) extremely dense parenchyma, limiting the sen sitivity of mammography. BI-RADS CATEGORY: (1) - 1 RECOMMENDATION: (ANNUAL) - Recommend routine annual screening mammography. [id number] 1 year screening LATERALITY: (B)
== END 2019-12-02 12:26 | disposition home or self-care (01) ==
LOC: DI 12:25
DX: Z12.31 Encounter for screening mammogram for malignant neoplasm of breast (principal)
CPT/HCPCS: 77063; 77067

== ENCOUNTER 2020-03-25 07:18 | Outpatient (CLI) | payer BC ==
[2020-03-25 07:30] LABS: BASOPHILS # (AUTO) 0.1 10^3/uL (0.0-0.1); BASOPHILS % (AUTO) 0.5 %; EOSINOPHILS # (AUTO) 0.1 10^3/uL (0.0-0.7); EOSINOPHILS % (AUTO) 1.2 %; HGB - HEMOGLOBIN 14.9 g/dL (12.0-16.0); LYMPHOCYTES # (AUTO) 2.9 10^3/uL (1.5-3.5); LYMPHOCYTES % (AUTO) 23.6 %; MEAN CORPUSCULAR HEMOGLOBIN 28.9 pg (27.0-31.0); MEAN CORPUSCULAR HGB CONC 32.5 g/dL (32.0-36.0); MEAN CORPUSCULAR VOLUME 88.9 fL (81.0-99.0); MEAN PLATELET VOLUME 8.7 fL (7.9-10.8); MONOCYTES # (AUTO) 0.7 10^3/uL (0.0-1.0); MONOCYTES % (AUTO) 5.8 %; NEUTROPHILS # (AUTO) 8.3 10^3/uL (1.5-6.6); NEUTROPHILS % (AUTO) 68.3 %; PLT - PLATELET COUNT 444 10^3/uL (130-450); RED BLOOD COUNT 5.15 10^6/uL (4.20-5.40); RED CELL DISTRIBUTION WIDTH 12.8 % (12.0-15.0); WHITE BLOOD COUNT 12.1 x10^3/uL (4.8-10.8)
[2020-03-25 07:54] LABS: ALBUMIN 4.2 g/dL (3.2-5.5); ALBUMIN/GLOBULIN RATIO 1.3 (1.0-2.2); ALKALINE PHOSPHATASE 82 IU/L (42-121); ALT ALANINE AMINOTRANSFERASE 23 IU/L (10-60); AST ASPARTATE AMINOTRANSFERASE 12 IU/L (10-42); BILIRUBIN,TOTAL 0.5 mg/dL (0.2-1.0); BUN - BLOOD UREA NITROGEN 11 mg/dL (6-20); CALCIUM 9.8 mg/dL (8.5-10.3); CARBON DIOXIDE - CO2 27 mmol/L (21-32); CHLORIDE 103 mmol/L (101-111); CHOL/HDL RATIO 5.8 (<4.4); CHOLESTEROL 208 mg/dL; CREATININE 0.7 mg/dL (0.4-1.0); GLUCOSE 103 mg/dL (70-100); HDL CHOLESTEROL 36 mg/dL; LDL CHOLESTEROL,CALCULATED 151 mg/dL; LDL/HDL RATIO 4.2 (<4.4); SODIUM 141 mmol/L (135-145); TOTAL PROTEIN 7.5 g/dL (6.7-8.2); VLDL CHOLESTEROL 21 mg/dL
[2020-03-25 08:02] LABS: T4 (THYROXINE) 6.85 ug/dL (6.09-12.23)
[2020-03-25 08:06] LABS: THYROID STIMULATING HORMONE 1.6 uIU/mL (0.34-5.60)
== END 2020-03-25 07:19 | disposition home or self-care (01) ==
LOC: LAB 07:18
PROVIDERS: ATTEND Registered Nurse
DX: E88.81 Metabolic syndrome and other insulin resistance (principal); Z13.220 Encounter for screening for lipoid disorders; Z13.1 Encounter for screening for diabetes mellitus
CPT/HCPCS: 36415; 80053; 80061; 81599; 83525; 83721; 84436; 84443; 85025